=== PATIENT | female | born 1985 | race Caucasian/White ===

== ENCOUNTER 2024-06-22 10:59 | Emergency (ER) | payer OTHER, SELFPAY ==
[2024-06-22 11:06] VITALS: BP 114/82
[2024-06-22 11:23] VITALS: BMI 22.5
--- NOTE | 2024-06-22 12:42 | ED.GENMED ---
History of Present Illness
General
Chief Complaint: Back Pain
Source: patient
Exam Limitations: none
Time Seen by Provider: 06/22/24 12:03
Nursing documentation reviewed up to this point in time: agreed with
History of Present Illness
History of Present Illness:
38 y/o F
known L/4L5 disc herniation on outpatient MRI 3 weeks ago
here with new/worsening pain since 8 am this morning when she tried to get out of bed
she has sudden L pain into L leg, foot numbness, perineal anestheisa and feels like she cannot void urine normally
her pain is severe with any movement
she does not feel overly weak in the leg
no feve/rchils/IVDA
she tried motrin today which didn't help pain
ahd remote microdiscketomy
Past History
Past History
ED Past Medical History: Other (HS)
ED Past Surgical History: Cholecystectomy and Orthopedic (Back)
Social History
Tobacco: Smoker
Alcohol: Occasional
Personal:
Living: with family
Employment: Not employed
Family History
Family History: CAD (Noncontributory)
Review of Systems
Review of Systems
Allergies reviewed?: Yes
All Other Systems: Not applicable
Phy Exam
Physical Exam
Physical Exam:
GENERAL: Alert , tearful
HEAD: NCAT
NECK: no midline tenderness, active ROM intact, no paraspinal muscle tenderness;
CARDIAC: Regular rate and rhythm, no edema
LUNGS: Clear breath sounds bilaterally, no acute respiratory distress, no wheezes/rales/rhonchi
ABDOMEN: Soft, without focal tenderness, no r/g, no cvat, normal bowel sounds,
Bladder palpable
NEUROLOGICAL: Alert and oriented, no focal neuro deficits, CN intact, 5/5 strength, sensation intact, ambulation slight limp left leg
SKIN: Warm and dry,
MUSCULOSKELETAL: No edema, well perfused. Normal inspection of the left hip, left leg
diffuse tenderness to back/L hip/L SI joint
Back: tendernerss midline
And left lateral, left SI joint, but the perineum is reportedly diminished sensation, she did have some rectal tone which was diminished
Positive straight leg raise on the left at 10 degrees, positive on the right with pain reproducing on the left at 15 degrees
Reported diminished sensation to the bottom of her foot on the left, normal pulse
Mild 4+ out of 5 strength distal strength, no proximal weakness
PSYCH: Normal and appropriate interaction.
Course
Orders/Labs/Results
Orders:
Orders
06/22/24 12:34
Bladder Scan- Treatment ONCE
HYDROmorphone [Dilaudid] 1 mg IV NOW STA
Test Result ONCE
06/22/24 13:04
Complete Blood Count/With Diff Urgent
Comprehensive Metabolic Panel Urgent
HCG, Serum Qualitative Screen Urgent
06/22/24 14:29
Ondansetron Injectable [Zofran] 4 mg IV NOW STA
06/22/24 14:30
Ondansetron Injectable [Zofran] 4 mg .ROUTE .[facility]
06/22/24 14:44
Urinalysis Reflex To Culture Urgent
Date Specimen was Collected: 06/22/24
Time Specimen was Collected: 13:26
Urine Microscopic Reflex Cult Urgent
Urine Culture Urgent
INES Source: U
Specimen Description:
Obtained by: Random
Date Specimen was Collected: 06/22/24
Time Specimen was Collected: 13:26
06/22/24 15:48
Morphine Sulfate 4 mg IV NOW STA
06/22/24 16:10
Electrocardiogram (*1) Urgent
Reason for Study: Abdominal Pain
EKG- Treatment ONCE
Abnormal Lab Results
06/22/24 06/22/24
13:04 14:44
MPV 10.5 H fL
(7.4-10.4)
ALT 41 H U/L
(0-35)
Leukocyte Esterase Rfl 1+ A
(Negative)
06/22/24 13:04
06/22/24 13:04
Vital Signs
Initial and Last Documented VS:
Initial Vital Signs
Temp Pulse Resp BP Pulse Ox
36.6 C 70 16 114/82 99
06/22/24 11:06 06/22/24 11:06 06/22/24 11:06 06/22/24 11:06 06/22/24 11:06
Last Documented Vital Signs
Temp Pulse Resp BP Pulse Ox
36.6 C 70 16 123/76 99
06/22/24 11:06 06/22/24 11:06 06/22/24 11:06 06/22/24 16:26 06/22/24 11:06
MDM/Problems Addressed
Differential Diagnosis Includes:
Cauda equina, disc herniation, lumbar radiculopathy
MDM/Problems Addressed:
38-year-old female with a known lumbar disc herniation on recent MRI 3 weeks ago at an outpatient [facility] here for a sudden worsening of left lumbar radiculopathy symptoms with new numbness to her left foot and buttock region. Patient
feels like she has not been able to void normally in the last 2 days. She has not urinated yet today. She took ibuprofen and was able to crawl but ended up calling 911 to get here. She has not had any fever, IV drug abuse history, urinary
incontinence, stool incontinence, significant weakness. On exam patient is tearful and uncomfortable with any movement of her back and with any testing of her leg, she does have diminished sensation to the foot and perineum region with present but
slightly weak rectal tone
Prior bladder scan was 550 mL, despite trying to control her pain she still did not feel like she could void normally. Will straight cath the patient.
Concern for cauda equina given this presentation clinically, I spoke with Dr. Yoana Gaviria on-call for neurosurgery at [facility]
We ultimately decided to transfer her for imaging to obtain there because our MRI machine is also down but given her symptoms and clinical picture she will need a neurosurgery evaluation regardless of the MRI.
She was excepted by the emergency department at [facility] by
And will be transferred BLS.
Note that after 2 doses of IV opiates patient got the severe epigastric discomfort/nausea, requiring Zofran. She did look uncomfortable with it and she did recall having Tylenol with codeine before do the same thing to her. She does not have a
gallbladder but I did obtain an EKG which was normal. Dr. Nunez did take a very quick look at the bedside ultrasound but she did have a lot of overlying gas. It is unlikely that she has aortic pathology as a cause for her symptoms, she has very
localized lumbar pain with radiation down the leg which really seems classic for lumbar radiculopathy and is being transferred to [facility]
*Critical Care Note
Total Time (30-74mins, 75-104mins- exclusive of procedures): Not Applicable
ED Attending Note
-
Portions of this chart may have been created with voice recognition software.� Occasional wrong word or��sound alike� substitutions may have occurred due to the inherent limitations of voice recognition software.
Discharge Plan
Departure
Patient Disposition: Acute Care Hospital
Date of Disposition: 06/22/24
Time of Disposition: 13:46
Discharge Problem:
Cauda equina syndrome
Prescriptions:
No Action
clindamycin HCl [Cleocin HCl] 300 MG capsule
300 mg PO BID
rifampin 300 MG capsule
300 mg PO BID
yidekkcqlv-kzacrhkelotvp-tzly [Fioricet] 1 EACH capsule
1 ea PO Q6HPRN PRN (Reason: headache) Qty: 20 0RF
Referrals:
Daryl Dubon Sr [Other]
Nico Buckley DO [Family Provider] -
Hospital Transfer
Other hospital: [facility]
I certify that the patient requires transfer: Yes
Discussed case with accepting physician: sandeep
Reason for transfer: higher level of care and specialties available
Interventions
Interventions:
*Nursing Disposition Last Done: 06/22/24 16:53
ED-Musculoskeletal Assessment Last Done: 06/22/24 11:23
Discharge Date and Time
Discharge Date/Time: 06/22/24 16:56
Print Language: SRI LANKAN
[2024-06-22] MEDS: DILAUDID 1 MG IV (12:57)
[2024-06-22 13:17] LABS: % Basophils 0.9 % (0-2); % Eosinophils 1.1 % (0-6); % Immature Granulocytes 0.3 % (0-0.5); % Lymphocytes 21.3 % (20.5-51.1); % Monocytes 4.9 % (1.7-9.3); % Neutrophils 71.5 % (42.2-75.2); Absolute Basophils 0.1 10^3/uL (0-0.2); Absolute Eosinophils 0.1 10^3/uL (0-0.7); Absolute Lymphocytes 1.5 10^3/uL (1.2-3.4); Absolute Monocytes 0.3 10^3/uL (0.1-0.6); Hematocrit 43.7 % (37.0-47.0); Hemoglobin 15.2 g/dL (12.0-16.0); Mean Corp Hgb Conc. 34.8 g/dL (33.0-37.0); Mean Corpuscular Hgb 30.5 pg (27.0-31.0); Mean Corpuscular Volume 87.6 fL (81.0-99.0); Mean Platelet Volume 10.5 fL (7.4-10.4); Nucleated Red Blood Cells % 0 %; Platelet Count 215 10^3/uL (130-400); Red Blood Cell Count 4.99 10^6/uL (4.20-5.40); Red Cell Dist. Width 12.3 % (11.5-14.5)
[2024-06-22 13:29] LABS: HCG, Serum Qualitative Screen Negative
[2024-06-22 13:30] LABS: ALT (SGPT) 41 U/L (0-35); AST (SGOT) 34 U/L (14-36); Albumin 4.7 g/dl (3.5-5.0); Alkaline Phosphatase 69 U/L (38-126); Blood Urea Nitrogen 16 mg/dl (7-17); Calcium 9.9 mg/dl (8.4-10.2); Carbon Dioxide 28 mmol/L (22-30); Chloride 104 mmol/L (98-107); Estimated Creatinine Clearance 97 ml/min; Glucose 92 mg/dl (70-99); Potassium 4.7 mmol/L (3.5-5.1); Sodium 140 mmol/L (135-145); Total Bilirubin 0.7 mg/dl (0.2-1.3); Total Protein 8.2 g/dl (6.3-8.2); eGFR > 60.00
[2024-06-22] MEDS: ZOFRAN 4 MG IV (14:33)
[2024-06-22 15:03] LABS: Urine Albumin Negative (Neg - Trace); Urine Bilirubin Negative (Negative); Urine Character Clear (Clear); Urine Color Yellow; Urine Glucose Negative (Negative); Urine Ketone Negative (Negative); Urine Leukocyte 1+ (Negative); Urine Nitrite Negative (Negative); Urine Occult Blood Negative (Negative); Urine Specific Gravity 1.005 (<1.030); Urine Urobilinogen Negative (Neg - 1+)
[2024-06-22 15:11] LABS: Urine Red Blood Cell 0-2 /HPF (0-2); Urine White Cell 0-2 /HPF (0-5)
[2024-06-22] MEDS: MORPHINE SULFATE 4 MG IV (15:52)
[2024-06-22 16:26] VITALS: BP 123/76
== END 2024-06-22 16:56 | disposition short-term general hospital (02) ==
LOC: EMR 10:59
PROVIDERS: Physician Assistant; EMERGENCY PHYSICIAN Emergency Medicine; FAMILY PHYSICIAN Family Medicine
DX: G83.4 Cauda equina syndrome (principal); F17.200 Nicotine dependence, unspecified, uncomplicated; Z90.49 Acquired absence of other specified parts of digestive tract
CPT/HCPCS: 99284; 96374; 96375; 80053; 81003; 81015; 84703; 85025; 87086; 93005

== ENCOUNTER 2024-08-04 12:54 | Outpatient (RCR) | payer OTHER, SELFPAY | END 2024-08-11 23:59 | disposition home or self-care (01) | LOC: RPT 12:54 | PROVIDERS: ATTENDING PHYSICIAN Neurological Surgery | DX: Z47.89 Encounter for other orthopedic aftercare (principal); M51.16 Intervertebral disc disorders with radiculopathy, lumbar region; Z73.6 Limitation of activities due to disability; M62.81 Muscle weakness (generalized); M79.605 Pain in left leg | CPT/HCPCS: 97110; 97112; 97161 ==